=== PATIENT | male | born 1950 | race Caucasian/White ===

== ENCOUNTER 2025-02-12 10:35 | Emergency (ER) | payer OTHER | END 2025-02-12 13:45 | disposition home or self-care (01) | LOC: JD.ED 10:35 | DX: S89.91XA Unspecified injury of right lower leg, initial encounter (principal); I10 Essential (primary) hypertension; T80.62XA Other serum reaction due to vaccination, initial encounter; Z87.891 Personal history of nicotine dependence; X50.1XXA Overexertion from prolonged static or awkward postures, initial encounter | CPT/HCPCS: 73560-26-RT; 73560-RT; 99283 ==